=== PATIENT | male | born 1975 ===

== ENCOUNTER 2017-07-06 18:11 | Emergency (ER) | payer SELFPAY ==
[2017-07-06 18:36] VITALS: RESP 18
--- NOTE | 2017-07-06 19:41 | C.PDOC ---
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 he says he landed on his back and lost consciousness for about 1 minute. he was in [place] at the time but wanted to come to a hospital near his house so he came here. he denies any neck pain. Time Seen by Provider: 07/06/17 18:47 Chief Complaint (Nursing): Headache Past Medical History Vital Signs: Last Vital Signs Temp 97.5 F L 07/06/17 21:48 Pulse 71 07/06/17 21:48 Resp 18 07/06/17 21:48 BP 122/76 07/06/17 21:48 Pulse Ox 98 07/06/17 21:59 Family History: States: Other Other Family History: nc - Social History Hx Alcohol Use: No Hx Substance Use: No - Immunization History Hx Tetanus Toxoid Vaccination: No Hx Influenza Vaccination: No Hx Pneumococcal Vaccination: No Review Of Systems Constitutional: Negative for: Fever Eyes: Negative for: Vision Change Cardiovascular: Negative for: Chest Pain Respiratory: Negative for: Cough, Shortness of Breath Gastrointestinal: Negative for: Nausea, Vomiting, Abdominal Pain Musculoskeletal: Negative for: Neck Pain Neurological: Positive for: Headache. Negative for: Weakness, Numbness Physical Exam - Physical Exam Appears: Well, Non-toxic, No Acute Distress Skin: Warm, Dry Head: Atraumatic, No Tenderness, No Swelling, No Abrasion, No Laceration Eye(s): bilateral: PERRL, EOMI Nose: No Epistaxis Oral Mucosa: Moist Tongue: No Swelling Lips: No Swelling Neck: Normal ROM, No Midline Cervical Tenderness Chest: No Deformity, No Tenderness, No Ecchymosis, No Subcutaneous Emphysema Cardiovascular: Rhythm Regular Respiratory: No Decreased Breath Sounds, No Accessory Muscle Use, No Rales, No Rhonchi, No Stridor, No Wheezing Gastrointestinal/Abdominal: Soft, No Tenderness Back: Vertebral Tenderness (low LS), Other (atraumatic) Extremity: No Deformity, No Swelling Neurological/Psych: Oriented x3, Normal Cranial Nerves, Normal Motor, Normal Sensation, Other (no focal deficits) Gait: Steady ED Course And Treatment O2 Sat by Pulse Oximetry: 98 - CT Scan/US CT Head Other Rad Studies (CT/US): Read By Radiologist, Radiology Report Reviewed CT/US Interpretation: EXAM: CT Head Without Intravenous Contrast. CLINICAL HISTORY: 41 years old, male; Injury or trauma; Fall; Initial encounter; Blunt trauma (contusions or hematomas);. Consciousness not specified; Additional info : Fall head trauma. TECHNIQUE: Axial computed tomography images of the head/ brain without intravenous contrast. All CT scans at. this facility use one or more dose reduction techniques, viz.: automated exposure control; ma/kV. adjustment per patient size (including targeted exams where dose is matched to indication; i.e. head);. or iterative reconstruction technique. Coronal and sagittal reformatted images were created and reviewed. COMPARISON: No relevant prior studies available. FINDINGS: Brain: No hemorrhage. No significant white matter disease. No edema. Ventricles: No hydrocephalus. Bones: Skull is intact. Sinuses: No acute sinusitis. Mastoid air cells: No mastoid effusion. IMPRESSION: No CT evidence of acute intracranial abnormality. [facility]. [facility]. Final Radiology Report [id number]. Name: MAX GALICIA Age: 41Years M Date: 07/06/2017. SSN: [id number] : 1975. Study: CT HEAD WO Requesting Physician: Donte Carlos. Images: [id number]. Addl Studies: Provided Clinical History: fall head trauma. CONFIDENTIALITY STATEMENT. This transmission is confidential and is intended to be a privileged communication. It is intended only for the use of the addressee. Access to this. message by anyone else is unauthorized. If you are not the intended recipient, any disclosure, copying, distribution or any action taken, or omitted to. be taken in reliance on it is prohibited and may be unlawful. If you received this communication in error, please notify us by telephone, so that return. of this document to us can be arranged. Page 2 of 2. Thank you for allowing us to participate in the care of your patient. Dictated and Authenticated by: Ai Alarcon MD. 07/06/2017 8:35 PM Eastern Time ([place] & [place]) Medical Decision Making Medical Decision Making: cxr- nad ls xr- no acute fracture pt denied need for pain medication Disposition - Disposition Referrals: [facility] [Outside] Disposition: HOME/ ROUTINE Disposition Time: 21:59 Condition: GOOD Additional Instructions: Please follow up with your doctor next week. Return to the ER for any worsening symptoms, neck pain, worsening back pain, numbness, weakness, or for any other concerns. Forms: [facility]charge [facility] [place], [facility] ([place]) Print Language: SWAZI - Clinical Impression Clinical Impression: Contusion of head, Contusion of back
--- NOTE | 2017-07-06 20:36 | CT ---
EXAM: CT Head Without Intravenous Contrast CLINICAL HISTORY: 41 years old, male; Injury or trauma; Fall; Initial encounter; Blunt trauma (contusions or hematomas); Consciousness not specified; Additional info: Fall head trauma TECHNIQUE: Axial computed tomography images of the head/brain without intravenous contrast. All CT scans at this facility use one or more dose reduction techniques, viz.: automated exposure control; ma/kV adjustment per patient size (including targeted exams where dose is matched to indication; i.e. head); or iterative reconstruction technique. Coronal and sagittal reformatted images were created and reviewed. COMPARISON: No relevant prior studies available. FINDINGS: Brain: No hemorrhage. No significant white matter disease. No edema. Ventricles: No hydrocephalus. Bones: Skull is intact. Sinuses: No acute sinusitis. Mastoid air cells: No mastoid effusion. IMPRESSION: No CT evidence of acute intracranial abnormality.
[2017-07-06 21:49] VITALS: BP 122/76; PULSE 71; TEMP 97.5
[2017-07-06 21:59] VITALS: O2SAT 98
--- NOTE | 2017-07-07 08:26 | RAD ---
HISTORY: Trauma/fall. COMPARISON: No prior. TECHNIQUE: Chest PA and lateral FINDINGS: LUNGS: No active pulmonary disease. PLEURA: No significant pleural effusion identified. No pneumothorax apparent. CARDIOVASCULAR: No radiographic findings to suggest acute or significant cardiovascular disease. OSSEOUS STRUCTURES: No significant abnormalities. VISUALIZED UPPER ABDOMEN: Normal. OTHER FINDINGS: None. IMPRESSION: No active disease.
--- NOTE | 2017-07-07 08:28 | RAD ---
PROCEDURE: Radiographs of the Lumbar Spine. HISTORY: fall pain COMPARISON: No prior. FINDINGS: BONES: Normal alignment. No listhesis. No fracture. DISC SPACES: Unremarkable. OTHER FINDINGS: None. IMPRESSION: Unremarkable radiographs of the lumbar spine.
== END 2017-07-06 22:20 | disposition home or self-care (01) ==
LOC: C.ER 18:11
DX: S00.93XA Contusion of unspecified part of head, initial encounter (principal); S30.0XXA Contusion of lower back and pelvis, initial encounter; W17.89XA Other fall from one level to another, initial encounter; Y92.89 Other specified places as the place of occurrence of the external cause; Y99.0 Civilian activity done for income or pay